=== PATIENT | female | born 2000 | race Two or more races ===

== ENCOUNTER 2023-07-02 17:39 | Emergency (ER) | payer MEDICAID, OTHER ==
[~2023-07-02] VITALS: Ht 157.5 cm; Wt 66.5 kg
[2023-07-02] MEDS: TETANUS-DIPTH-ACEL PERTUSSIS 0.5ML SYR Tdap IM ONE (06:05)
[2023-07-02] MEDS: CEPHALEXIN 250 MG CAP PO ONE (06:05)
[2023-07-02 17:59] VITALS: BP 114/72; PULSE 89
[2023-07-02] MEDS ORDERED: GABAPENTIN 300 MG CAP PO ONE (18:15)
[2023-07-02] MEDS ORDERED: CEPH500C PO (20:56)
[2023-07-02] MEDS ORDERED: IBUP-1454 PO (20:56)
[2023-07-03 06:00] VITALS: RESP 20; O2SAT 99
== END 2023-07-03 06:19 | disposition home or self-care (01) ==
LOC: ER 17:39
DX: S61.211A Laceration without foreign body of left index finger without damage to nail, initial encounter (principal); W26.8XXA Contact with other sharp object(s), not elsewhere classified, initial encounter; Y93.89 Activity, other specified; Y92.89 Other specified places as the place of occurrence of the external cause; Y99.8 Other external cause status
CPT/HCPCS: 12001